=== PATIENT | female | born 2000 | race Caucasian/White ===

== ENCOUNTER 2021-05-25 11:04 | Emergency (ER) | payer MEDICAID ==
[~2021-05-25] VITALS: Ht 160 cm; Wt 53.6 kg
[2021-05-25 11:07] VITALS: BP 128/74
--- NOTE | 2021-05-25 11:08 | NUR ---
NO ANSWER TO TRIAGE FROM [facility].
[2021-05-25] MEDS ORDERED: SILVER SULF. CRM 1% , 25GM TP ONE (11:30)
[2021-05-25] MEDS ORDERED: SILVER SULF. CRM 1% , 25GM ONE (11:38)
--- NOTE | 2021-05-25 11:45 | NUR ---
PT WITH FRIEND AT AND IN [facility] SE[facility] ON [facility] WITH HER. PT CURRENTLY PUMPING BREAST MILK. STATES SHE HASN'T EATEN ALL DAY; SNACKS & WATER PROVIDED. BILAT HANDS WRAPPED WITH KERLIX.
--- NOTE | 2021-05-25 12:25 | NUR ---
ER PA IN TO SEE PT.
--- NOTE | 2021-05-25 12:40 | NUR ---
SILVER CREAM APPLIED TO BILAT HANDS BURNED AREAS PER ORDERS AND WRAPPED WITH ADAPTIC/KERLIX. D/C INSTRUCTIONS, MEDS & F/U APPT RV'WD WITH PT. INSTRUCTED PT TO RETURN TO ED TOMORROW FOR RECHECK, PER ER PA. PT AMBULATED OUT OF ED WITH SON & FRIEND WITHOUT DIFFICULTY.
== END 2021-05-25 12:47 | disposition home or self-care (01) ==
LOC: ED 12:40
DX: T23.252A Burn of second degree of left palm, initial encounter (principal); T23.251A Burn of second degree of right palm, initial encounter; T23.212A Burn of second degree of left thumb (nail), initial encounter; F17.210 Nicotine dependence, cigarettes, uncomplicated; T31.0 Burns involving less than 10% of body surface; X08.8XXA Exposure to other specified smoke, fire and flames, initial encounter; Y93.89 Activity, other specified; Y92.89 Other specified places as the place of occurrence of the external cause; Y99.8 Other external cause status
CPT/HCPCS: 16020; 99406